=== PATIENT | female | born 1970 | race Caucasian/White ===

== ENCOUNTER 2022-08-07 08:14 | Day surgery (SDC) | payer OTHER ==
[2022-08-04 16:46] VITALS: BMI 38.7
[2022-08-07] MEDS ORDERED: BUPIVACAINE HCL/PF 2.5 MG/ML - 30 ML VIAL IJ ONE (08:44)
[2022-08-07] MEDS ORDERED: LIDOCAINE HCL 2% 100 MG/5 ML DISP.SYRIN ONE (09:42)
[2022-08-07] MEDS ORDERED: PROPOFOL 20 ML ONE (09:43)
[2022-08-07] MEDS ORDERED: ROCURONIUM BROMIDE 50 MG/5 ML SYRINGE ONE (09:43)
[2022-08-07] MEDS ORDERED: MIDAZOLAM HCL 2 MG/2 ML SINGLE DOSE VIAL ONE (09:43)
[2022-08-07] MEDS ORDERED: SUCCINYLCHOLINE CHLORIDE 200 MG/10 ML SYRINGE ONE (09:43)
[2022-08-07] MEDS ORDERED: ONDANSETRON 4 MG/2 ML VIAL ONE (10:20)
[2022-08-07] MEDS ORDERED: ceFAZolin SODIUM 1 GM VIAL ONE (10:20)
[2022-08-07] MEDS ORDERED: DEXAMETHASONE SOD PHOSPHATE 4 MG/1 ML VIAL ONE (10:20)
[2022-08-07] MEDS ORDERED: ONDANSETRON 4 MG/2 ML VIAL IVPUSH PRN ×2 (11:59→12:17)
[2022-08-07] MEDS ORDERED: SODIUM CHLORIDE 1,000 ML IV SCH (12:00)
[2022-08-07] MEDS ORDERED: oxyCODONE HCL 5 MG TABLET PO PRN ×3 (12:00→12:17)
[2022-08-07] MEDS ORDERED: PROMETHAZINE HCL 25 MG/1 ML VIAL IVPUSH PRN (12:17)
[2022-08-07] MEDS ORDERED: FENTANYL CITRATE/PF 50 MCG/ML VIAL ONE ×3 (12:18→12:46)
[2022-08-07] MEDS ORDERED: ACETAMINOPHEN 1000 MG/100 ML BAG IVPB ONE (12:18)
[2022-08-07] MEDS ORDERED: LACTATED RINGERS SOLUTION 1,000 ML IV SCH (12:30)
[2022-08-07 12:49] LABS: CREATININE 0.9 mg/dl (0.55-1.3)
[2022-08-07 12:55] LABS: HEMATOCRIT 36.9 % (32.4-45.2); HEMOGLOBIN 12.7 G/dL (10.7-15.3); MCH 26.9 pg (25.7-33.7); MCHC 34.5 g/dl (32.0-36.0); PLATELET COUNT 232.5 10^3/uL (134-434); RBC 4.73 10^6/uL (3.60-5.2); RDW 16.2 % (11.6-15.6); WHITE BLOOD COUNT 12.6 10^3/uL (4.0-10.8)
[2022-08-07 14:23] VITALS: RESP 18
[2022-08-07] MEDS ORDERED: oxyCODONE HCL 5 MG TABLET ONE (14:30)
[2022-08-07 15:08] VITALS: BP 131/74; PULSE 67; TEMP 98.2
[2022-08-07] MEDS ORDERED: FAMOTIDINE 20 MG/50 ML IVPB 20 MG/50 ML MG IVPB SCH (22:00)
== END 2022-08-07 15:45 | disposition home or self-care (01) ==
LOC: FASU 08:14
PROVIDERS: ATTEND Surgery
PROC: 0DP60CZ Removal of Extraluminal Device from Stomach, Open Approach (ICD-10-PCS; 2022-08-07)
PROC: 0DN64ZZ Release Stomach, Percutaneous Endoscopic Approach (ICD-10-PCS; 2022-08-07)
PROC: 0DP64CZ Removal of Extraluminal Device from Stomach, Percutaneous Endoscopic Approach (ICD-10-PCS; principal; 2022-08-07 10:28)
DX: T85.518A Breakdown (mechanical) of other gastrointestinal prosthetic devices, implants and grafts, initial encounter (principal); K95.09 Other complications of gastric band procedure; Y73.3 Surgical instruments, materials and gastroenterology and urology devices (including sutures) associated with adverse incidents; Y93.89 Activity, other specified; Y92.89 Other specified places as the place of occurrence of the external cause; K31.89 Other diseases of stomach and duodenum
CPT/HCPCS: 36415; 74240-TC-FY; 80048; 84703; 85027; 88304-TC; 94760

== ENCOUNTER 2023-02-19 07:04 | Inpatient (IN) | payer OTHER ==
[2023-02-12 15:17] VITALS: BMI 39.6
[2023-02-19] MEDS ORDERED: BUPIVACAINE HCL/PF 0.25% (2.5MG/ML) 10 ML VIAL ONE (07:17)
[2023-02-19] MEDS ORDERED: ONDANSETRON 4 MG/2 ML VIAL IVPUSH PRN ×2 (08:16→12:58)
[2023-02-19] MEDS ORDERED: MIDAZOLAM HCL 2 MG/2 ML SINGLE DOSE VIAL ONE (08:28)
[2023-02-19] MEDS ORDERED: PROPOFOL 20 ML ONE (08:28)
[2023-02-19] MEDS ORDERED: HYDROmorphone HCL/PF 1 MG/ML VIAL ONE ×2 (08:28→14:31)
[2023-02-19] MEDS ORDERED: LACTATED RINGERS SOLUTION 1,000 ML IV SCH (08:30)
[2023-02-19] MEDS ORDERED: NEOSTIGMINE METHYLSULFATE 0.5 MG/1 ML - 10 ML MDV ONE (12:43)
[2023-02-19] MEDS ORDERED: HYDROmorphone HCL/PF 1 MG/ML VIAL IVPB PRN (13:03)
[2023-02-19] MEDS ORDERED: FENTANYL CITRATE/PF 50 MCG/ML VIAL ONE ×4 (13:16→13:40)
[2023-02-19] MEDS ORDERED: ACETAMINOPHEN 1000 MG/100 ML BAG IVPB ONE (13:16)
[2023-02-19] MEDS: METOCLOPRAMIDE HCL INJECTION 10 MG/2 ML VIAL IVPUSH SCH (13:39)
[2023-02-19 13:48] LABS: HEMATOCRIT 36.8 % (32.4-45.2); HEMOGLOBIN 12.2 G/dL (10.7-15.3); MCH 25.9 pg (25.7-33.7); MCHC 33.1 g/dl (32.0-36.0); MEAN CELL VOLUME 78.4 fl (80-96); MEAN PLT VOLUME 9.9 fl (7.5-11.1); PLATELET COUNT 215.4 10^3/uL (134-434); RBC 4.69 10^6/uL (3.60-5.2); RDW 15.8 % (11.6-15.6); WHITE BLOOD COUNT 13.6 10^3/uL (4.0-10.8)
[2023-02-19 13:52] LABS: ALBUMIN 3.6 g/dl (3.4-5.0); BILIRUBIN,TOTAL 0.5 mg/dl (0.2-1); CREATININE 0.8 mg/dl (0.55-1.3); TOT PROT 7.1 g/dl (6.4-8.2)
[2023-02-19 14:03] LABS: POTASSIUM 4.2 mmol/L (3.5-5.1)
[2023-02-19] MEDS: SODIUM CHLORIDE 1,000 ML IV SCH ×2 (14:11→14:44)
[2023-02-19] MEDS: HYDROmorphone HCL/PF 1 MG/ML VIAL IVPB PRN ×2 (14:35→14:39)
[2023-02-19 18:14] LABS: HIV INTERPRETATION NEGATIVE (NEGATIVE)
[2023-02-19 21:48] LABS: HEMATOCRIT 35.8 % (32.4-45.2); MCH 26.2 pg (25.7-33.7); MCHC 33.5 g/dl (32.0-36.0); MEAN CELL VOLUME 78.1 fl (80-96); MEAN PLT VOLUME 10.2 fl (7.5-11.1); PLATELET COUNT 250.9 10^3/uL (134-434); RBC 4.58 10^6/uL (3.60-5.2); WHITE BLOOD COUNT 13.7 10^3/uL (4.0-10.8)
[2023-02-19] MEDS: FAMOTIDINE 20 MG/50 ML IVPB 20 MG/50 ML MG IVPB SCH (22:40)
[2023-02-20] MEDS: HYDROmorphone HCL/PF 1 MG/ML VIAL IVPB PRN ×2 (01:09→07:30)
[2023-02-20 02:00] VITALS: RESP 18
[2023-02-20] MEDS: METOCLOPRAMIDE HCL INJECTION 10 MG/2 ML VIAL IVPUSH SCH ×2 (04:39→07:30)
[2023-02-20 08:22] LABS: HEMATOCRIT 34.4 % (32.4-45.2); HEMOGLOBIN 11.2 G/dL (10.7-15.3); MCH 25.4 pg (25.7-33.7); MCHC 32.5 g/dl (32.0-36.0); MEAN CELL VOLUME 78.1 fl (80-96); MEAN PLT VOLUME 10.1 fl (7.5-11.1); PLATELET COUNT 242.7 10^3/uL (134-434); WHITE BLOOD COUNT 11.5 10^3/uL (4.0-10.8)
[2023-02-20] MEDS ORDERED: ENOXAPARIN NA (PORCINE) 30 MG/0.3 ML DISP.SYRIN SQ SCH (08:30)
[2023-02-20 08:32] LABS: ALBUMIN 3.2 g/dl (3.4-5.0); BILIRUBIN,TOTAL 0.4 mg/dl (0.2-1); CALCIUM 8.7 mg/dl (8.5-10); CREATININE 0.9 mg/dl (0.55-1.3); POTASSIUM 3.9 mmol/L (3.5-5.1); TOT PROT 6.3 g/dl (6.4-8.2)
[2023-02-20] MEDS: FAMOTIDINE 20 MG/50 ML IVPB 20 MG/50 ML MG IVPB SCH (09:11)
[2023-02-20 10:03] VITALS: BP 120/63; PULSE 108; TEMP 99.8
[2023-02-20] MEDS ORDERED: ACETAMINOPHEN 325 MG TABLET (FP) PO PRN (11:34)
[2023-02-20] MEDS ORDERED: oxyCODONE HCL 5 MG TABLET PO PRN (11:34)
[2023-02-20] MEDS ORDERED: SODIUM CHLORIDE 1,000 ML IV SCH (11:45)
== END 2023-02-20 14:16 | disposition home or self-care (01) | DRG 621 ==
LOC: FM/S 07:04
PROVIDERS: ADMIT Surgery; ATTEND Surgery
PROC: 0FB24ZX Excision of Left Lobe Liver, Percutaneous Endoscopic Approach, Diagnostic (ICD-10-PCS; 2023-02-19)
PROC: 0DJ04ZZ Inspection of Upper Intestinal Tract, Percutaneous Endoscopic Approach (ICD-10-PCS; 2023-02-19)
PROC: 0DNW4ZZ Release Peritoneum, Percutaneous Endoscopic Approach (ICD-10-PCS; 2023-02-19)
PROC: 0DB64Z3 Excision of Stomach, Percutaneous Endoscopic Approach, Vertical (ICD-10-PCS; principal; 2023-02-19 10:54)
DX: E66.01 Morbid (severe) obesity due to excess calories (principal); Z68.41 Body mass index [BMI] 40.0-44.9, adult; I10 Essential (primary) hypertension; G47.33 Obstructive sleep apnea (adult) (pediatric); R16.0 Hepatomegaly, not elsewhere classified; K66.0 Peritoneal adhesions (postprocedural) (postinfection)
CPT/HCPCS: 36415; 74240-TC-FY; 80053; 81025; 85027; 86850; 86900; 86901; 87389; 88307-TC; 94760; 97116-GP; 97161-GP